=== PATIENT | male | born 1960 | race Caucasian/White ===

== ENCOUNTER 2021-06-27 11:21 | Emergency (ER) | payer OTHER, SELFPAY ==
--- NOTE | ~2021-06-27 | XR_ITS ---
XR chest 2V DATE: 06/27/2021 13:13 INDICATION: Cough. Diminished lung sounds, coarse lower right lung zones. TECHNIQUE: 2 views COMPARISON: None FINDINGS: Normal heart size. No hilar or mediastinal enlargement. No pulmonary infiltrate or consolid ation, pleural effusion or pulmonary vascular congestion or pneumothorax. IMPRESSION: No active cardiopulmonary disease Reviewed, dictated and finalized at location A. P [employer]
[2021-06-27 12:10] VITALS: BP 130/70; PULSE 82; RESP 18; TEMP 37.1; O2SAT 99
[2021-06-27 12:25] VITALS: BP 130/70; PULSE 82; RESP 18; TEMP 37.1; O2SAT 99
--- NOTE | 2021-06-27 12:57 | ED.URI ---
HPI - URI/Sore Throat General Chief Complaint: Upper Respiratory Infection Stated Complaint: Cough/Chest Congestion Time Seen by Provider: 06/27/21 12:57 Source: patient, RN notes reviewed and old records reviewed Mode of arrival: ambulatory Limitations: no limitations History of Present Illness HPI Narrative: 61-year-old male presents to the [facility] with complaints of cough and congestion since June 23. Has been using [employer], [id number] products along with halls. Reports that his work did a Covid test and is still waiting for results. Was just swabbed yesterday. MD elicited complaint: cough Related Data Home Medications Medication Instructions Recorded Confirmed atorvastatin 20 mg PO DAILY 06/27/21 06/27/21 celecoxib 200 mg PO BID 06/27/21 06/27/21 cyclobenzaprine 10 mg PO TID 06/27/21 06/27/21 etodolac 300 mg PO TID 06/27/21 06/27/21 gabapentin 400 mg PO TID 06/27/21 06/27/21 montelukast 10 mg PO DAILY 06/27/21 06/27/21 trazodone 50 mg PO DAILY 06/27/21 06/27/21 Allergies Allergy/AdvReac Type Severity Reaction Status Date / Time No Known Allergies Allergy Verified 06/27/21 12:23 Review of Systems Review of Systems: All systems reviewed & are unremarkable except as noted in HPI and below Constitutional: Constitutional: Reports no additional constitutional complaints Eyes: Eyes: Reports no additional eye complaints ENT: Reports as per HPI and Reports sore throat Cardiovascular: Cardiovascular: Reports no additional cardiovascular complaints and Denies chest pain Respiratory: Respiratory: Reports no additional respiratory complaints, Reports chest congestion and Reports cough Gastrointestinal: Gastrointestinal: Reports no additional gastrointestinal complaints Musculoskeletal: Musculoskeletal: Reports no additional musculoskeletal complaints Integumentary/Breasts: Skin/Breast: Reports system reviewed and no additional complaints, except as docu Neurologic: Reports system reviewed and no additional complaints, except as documented Psychiatric: Psychiatric: Reports no additional psychiatric complaints Allergic/Immunologic: Allergic/Immunologic: Reports no additional allergic/immunologic complaints [facility] Past Medical History Medical History (Updated 06/28/21 @ 09:03 by Paola Newman) Chronic back pain Comments At the time of my signature, I reviewed and agree with the nursing past medical, surgical, social, and family history. There is no relevant family history pertinent to the patient complaint. Exam Const: General: healthy appearing, no acute distress and alert Nutritional Appearance: well nourished and obese Orientation/consciousness: patient oriented x3 Limitations: no limitations HENMT: Head: normal to inspection Ears: external ears normal, TM's normal bilaterally and EAC's normal Eyes: Conjunctivae: conjunctivae normal Pupils: Equal, round and reactive pupils present Neck: Neck: normal visual inspection, no lymphadenopathy and no meningeal signs Chest: Chest palpation & inspection: normal inspection of the chest Resp: Effort & Inspection: normal respiratory effort and no use of accessory muscles Auscultation: no crackles, no rales, no rhonchi, no wheezes and diminished lung sounds bilateral in the lower lung pineda Cardio: Rate: regular rate Rhythm: regular rhythm Back/Spine/Pelvis: Back: no CVA tenderness Skin: General skin exam: normal color Rashes: no rashes Wounds: no wounds Neuro: General: patient oriented x3, moves all extremities, no meningeal signs and no focal motor deficits Speech: normal speech Gait exam (Neuro): Normal gait present Extrem: General: normal to inspection Psych: Appearance: grossly normal and well kempt Mental Status: mental status grossly normal Affect: normal affect Attitude: cooperative Thought content: Yes Normal thought content present Course Course Emergency Course: Discharge instructions reviewed with patient, as well as pr
== END 2021-06-27 13:30 | disposition home or self-care (01) ==
PROVIDERS: Emergency Provider Nurse Practitioner; PCP Family Medicine
DX: J40 Bronchitis, not specified as acute or chronic (principal); E78.00 Pure hypercholesterolemia, unspecified
CPT/HCPCS: 71046; 99213; G0463